=== PATIENT | female | born 1965 | race African-American/Black ===

== ENCOUNTER 2025-01-09 08:06 | Emergency (ER) | payer MEDICARE, MEDICAID ==
[~2025-01-09] VITALS: Ht 165.1 cm; Wt 77.0 kg
[2025-01-09 08:14] VITALS: O2SAT 98
[2025-01-09] MEDS: KETOROLAC 30MG/ML VIAL IM ONE (09:15)
[2025-01-09] MEDS: METHOCARBAMOL 500MG TABLET PO ONE (09:15)
[2025-01-09] MEDS ORDERED: LIDO700A30 TP (10:32)
[2025-01-09] MEDS ORDERED: METH-653 MT (10:32)
[2025-01-09 11:21] VITALS: BP 145/98; PULSE 67; RESP 17; TEMP 36.7; O2SAT 99
== END 2025-01-09 11:00 | disposition home or self-care (01) ==
LOC: ER 08:06
DX: M50.30 Other cervical disc degeneration, unspecified cervical region (principal); M48.02 Spinal stenosis, cervical region; M47.22 Other spondylosis with radiculopathy, cervical region; I10 Essential (primary) hypertension; Z90.49 Acquired absence of other specified parts of digestive tract; Z98.890 Other specified postprocedural states
CPT/HCPCS: 99285; 72125; 96372; J1885